=== PATIENT | male | born 1940 | race Native Hawaiian/Other Pacific Islander ===

== ENCOUNTER 2017-02-08 15:17 | Emergency (ER) | payer OTHER, MEDICARE ==
[~2017-02-08] VITALS: Ht 152.4 cm; Wt 72.6 kg
[~2017-02-08 15:17] MED LIST: ALBUAER5 INH; ALBUTEROL0.083 % IN; DIOVAN HC1 PO; LISI20TA24 PO; TIOTCAP2 INH
[2017-02-08 15:43] LABS: PLATELET COUNT 270 K/uL (142-355)
[2017-02-08 15:48] LABS: POTASSIUM 4.5 mmol/L (3.6-5.2)
[2017-02-08 16:15] VITALS: TEMP 97.8
[2017-02-08 16:52] VITALS: BP 120/68
== END 2017-02-08 17:12 | disposition short-term general hospital (02) ==
LOC: ED 15:17
DX: S22.41XA Multiple fractures of ribs, right side, initial encounter for closed fracture (principal); W23.0XXA Caught, crushed, jammed, or pinched between moving objects, initial encounter; W24.1XXA Contact with transmission devices, not elsewhere classified, initial encounter; Y92.89 Other specified places as the place of occurrence of the external cause
CPT/HCPCS: 36415; 80053; 85027; 93005; 96374; 99285; J1885

== ENCOUNTER → 2017-02-08 19:05 | Outpatient (CLI) | payer OTHER, MEDICARE | END | disposition home or self-care (01) | LOC: AMB 19:05 | DX: S22.41XA Multiple fractures of ribs, right side, initial encounter for closed fracture (principal); W23.0XXA Caught, crushed, jammed, or pinched between moving objects, initial encounter; W24.1XXA Contact with transmission devices, not elsewhere classified, initial encounter; Y92.89 Other specified places as the place of occurrence of the external cause | CPT/HCPCS: A0425; A0427 ==

== ENCOUNTER 2017-04-25 03:22 | Emergency (ER) | payer OTHER, MEDICARE ==
[~2017-04-25] VITALS: Ht 162.6 cm; Wt 71.7 kg
[2017-04-25 04:08] LABS: PLATELET COUNT 400 K/uL (142-355)
[2017-04-25 04:20] LABS: SODIUM 136 mmol/L (136-145)
[2017-04-25 05:36] VITALS: BP 150/70; TEMP 98.3
== END 2017-04-25 05:37 | disposition home or self-care (01) ==
LOC: ED 03:22
DX: J44.1 Chronic obstructive pulmonary disease with (acute) exacerbation (principal)
CPT/HCPCS: 36415; 80053; 85027; 96372; 99283; J0696; J1100

== ENCOUNTER 2017-11-08 08:56 | Emergency (ER) | payer OTHER, MEDICARE ==
[~2017-11-08] VITALS: Ht 165.1 cm; Wt 72.6 kg
[2017-11-08 09:12] VITALS: TEMP 97.2
[2017-11-08 09:50] VITALS: BP 147/90
== END 2017-11-08 09:59 | disposition home or self-care (01) ==
LOC: ED 08:56
DX: J06.9 Acute upper respiratory infection, unspecified (principal); I10 Essential (primary) hypertension; Z91.19 Patient's noncompliance with other medical treatment and regimen
CPT/HCPCS: 99282

== ENCOUNTER 2017-11-09 12:25 | Emergency (ER) | payer OTHER, MEDICARE ==
[~2017-11-09] VITALS: Ht 170.2 cm; Wt 72.6 kg
[2017-11-09 12:44] VITALS: BP 128/64; TEMP 98.3
== END 2017-11-09 16:38 | disposition home or self-care (01) ==
LOC: ED 12:25
DX: R03.0 Elevated blood-pressure reading, without diagnosis of hypertension (principal)

== ENCOUNTER → 2017-11-14 08:52 | Outpatient (CLI) | payer OTHER, MEDICARE | END | disposition E | LOC: AMB 08:52 | DX: I46.9 Cardiac arrest, cause unspecified (principal) ==